=== PATIENT | male | born 1975 | race Caucasian/White ===

== ENCOUNTER → 2018-10-01 14:55 | Outpatient (CLI) | payer OTHER, SELFPAY ==
--- NOTE | 2018-10-01 | DI.CT.S_ITS ---
PROCEDURE: CT SOFT TISSUE NECK W CON INDICATIONS: LEFT LATERAL SOFT TISSUE MASS IN LYMPHNODE TECHNIQUE: After the administration of intravenous contrast, 3.0 mm axial sections acquired from the sella to the aortic arch. Additional oblique axial 3.0 mm sections acquired through the pharynx. 3 mm thick coronal and sagittal reformats were generated. For radiation dose reduction, the following was used: automated exposure control. COMPARISON: None. FINDINGS: Image quality: Excellent. Lymph nodes: No enlarged lymph nodes seen throughout the neck. A number of small lymph nodes are seen deep to the sternocleidomastoid muscle but no enlarged nodes are found in this area. The lymph nodes present generally are approximately 6-8 mm in short axis dimension. Vessels: Visualized vasculature appears patent. Neck spaces: The oropharynx, nasopharynx, and pharynx demonstrate no mucosal lesions. The vocal cords, false vocal cords, pyriform sinuses, epiglottis, vallecula, and tongue base all appear normal. Extramucosal spaces appear unremarkable. Glands: The parotid and submandibular glands appear normal. Thyroid gland appears normal. A CT surface marker was placed in the area of maximal patient concern at the lateral border of the area of the angle of the jaw, near the parotid gland. No inflammation or mass in this area is seen. Normal parotid gland enhancement without ductal dilatation is present. Miscellaneous: Visualized brain and orbits appear normal. Lung apices appear clear. Superficial soft tissues appear normal. Bones: No suspicious bony lesions. Visualized sinuses and mastoids appear unremarkable. IMPRESSION: There is an increased number of small lymph nodes somewhat greater on the left than the right within the area deep to the sternocleidomastoid muscle inferiorly, and in the area of maximal clinical concern by the patient near the angle of the left mandible and adjacent to the parotid gland no lesion is found in no inflammation is seen. Dictated by: Bebeto Mendez M.D. on 10/01/2018 at 15:26 Approved by: Bebeto Mendez M.D. on 10/01/2018 at 15:29
== END ==
PROVIDERS: Visit Provider Family Medicine
DX: R22.1 Localized swelling, mass and lump, neck (principal)
CPT/HCPCS: 70491